=== PATIENT | female | born 1990 | race Asian ===

== ENCOUNTER → 2021-06-16 | Outpatient (REF) | LOC: M LAB 11:24 | PROVIDERS: ATTEND Nurse Practitioner Adult Health | DX: Z00.00 Encounter for general adult medical examination without abnormal findings (principal) ==

== ENCOUNTER → 2022-05-17 | Outpatient (REF) | LOC: M LABSMTC 11:26 | PROVIDERS: ATTEND Family Medicine | DX: Z11.52 Encounter for screening for COVID-19 (principal) ==

== ENCOUNTER 2023-08-21 01:24 | Outpatient (CLI) | payer OTHER ==
[~2023-08-21] VITALS: Ht 162.6 cm; Wt 84.1 kg
[2023-08-21 01:41] VITALS: BP 169/103
[2023-08-21 02:13] VITALS: BP 186/97
[2023-08-21] MEDS ORDERED: HOME MED LIST COMPLETE! XX SCH (02:20)
[2023-08-21 02:24] LABS: HEMATOCRIT 36.4 % (36.0-47.0); HEMOGLOBIN 12.1 g/dl (12.0-15.5); MEAN CORPUSCULAR HEMOGLOBIN 30.9 pg (27.0-33.0); MEAN CORPUSCULAR HGB CONC 33.2 g/dl (32.0-36.5); MEAN CORPUSCULAR VOLUME 93.1 fl (80.0-96.0); PLATELET COUNT, AUTOMATED 246 10^3/uL (150-450); RED BLOOD COUNT 3.91 10^6/uL (4.00-5.40); WHITE BLOOD COUNT 10.1 10^3/uL (4.0-10.0)
[2023-08-21] MEDS ORDERED: ONDANSETRON 4MG 2ML VIAL As Ordered ONE (02:27)
[2023-08-21] MEDS ORDERED: MORPHINE 4 MG/ML 1ML VIAL As Ordered ONE (02:27)
[2023-08-21] MEDS: ONDANSETRON 4MG 2ML VIAL IV ONE (02:30)
[2023-08-21 02:32] VITALS: O2SAT 100
[2023-08-21] MEDS: MORPHINE 4 MG/ML 1ML VIAL IV ONE (02:32)
[2023-08-21 02:43] LABS: LIPASE 47 U/L (12-53)
[2023-08-21 02:44] LABS: AMYLASE 95 U/L (30-118)
[2023-08-21 02:45] LABS: ALBUMIN 2.7 G/DL (3.2-5.2); ALKALINE PHOSPHATASE 113 U/L (46-116); ALT/SGPT 15 U/L (7.0-40); AST/SGOT 24 U/L (<34); BILIRUBIN,TOTAL 0.3 MG/DL (0.3-1.2); BLOOD UREA NITROGEN 9 MG/DL (9-23); CARBON DIOXIDE LEVEL 22 MMOL/L (20-31); CHLORIDE LEVEL 103 MMOL/L (98-107); CREATININE FOR GFR 0.55 MG/DL (0.55-1.30); GLOMERULAR FILTRATION RATE > 60.0 (>60); GLUCOSE, FASTING 103 MG/DL (60-100); POTASSIUM SERUM 3.9 MMOL/L (3.5-5.1); SODIUM LEVEL 136 MMOL/L (136-145); TOTAL PROTEIN 6.6 G/DL (5.7-8.2)
[2023-08-21 02:53] VITALS: BP 137/71
[2023-08-21 03:29] LABS: TOTAL PROTEIN,RANDOM URINE 22.3 MG/DL (0.0-14.0)
[2023-08-21 03:34] LABS: CREATININE,RANDOM URINE 144.9 MG/DL
[2023-08-21 05:52] VITALS: BP 128/65
== END 2023-08-21 06:55 | disposition home or self-care (01) ==
LOC: M LDO 01:24
PROVIDERS: ATTEND Obstetrics & Gynecology
DX: O26.893 Other specified pregnancy related conditions, third trimester (principal); R03.0 Elevated blood-pressure reading, without diagnosis of hypertension; O99.613 Diseases of the digestive system complicating pregnancy, third trimester; K80.20 Calculus of gallbladder without cholecystitis without obstruction; Z3A.34 34 weeks gestation of pregnancy
CPT/HCPCS: 59025; 76705; 80053; 82150; 82570; 83690; 84156; 85027; 96374; 96375; G0463; J2405

== ENCOUNTER 2023-09-24 08:40 | Inpatient (IN) | payer OTHER ==
[~2023-09-24] VITALS: Ht 162.6 cm; Wt 86.5 kg
[2023-09-24] VITALS (66 sets, daily range): BP systolic 115–194; BP diastolic 55–114
[2023-09-24] MEDS ORDERED: PRENTAB9 PO (09:02)
[2023-09-24] MEDS ORDERED: OXYTOCIN DRIP 30 UNITS in IV 1 EA IV PRN (09:50)
[2023-09-24] MEDS ORDERED: OXYTOCIN INJ 10UNITS/ML 1ML VIAL IV PRN (09:50)
[2023-09-24] MEDS ORDERED: LIDOCAINE 1% MDV 20ML VIAL INFIL PRN (09:50)
[2023-09-24] MEDS ORDERED: OXYTOCIN INJ 10UNITS/ML 1ML VIAL IM PRN (09:50)
[2023-09-24] MEDS ORDERED: TRANEXAMIC ACID INJection 1,000 MG in NS 100 ML IV PRN (09:50)
[2023-09-24] MEDS ORDERED: LR 1,000 ML IV SCH (09:50)
[2023-09-24 10:26] LABS: BASO # 0.1 10^3/uL (0.0-0.2); BASO % 0.5 % (0.0-1.0); EOS # 0.1 10^3/uL (0.0-0.5); EOS % 0.7 % (0.0-3.0); HEMATOCRIT 37.3 % (36.0-47.0); HEMOGLOBIN 12.2 g/dl (12.0-15.5); LYMPH # 1.6 10^3/uL (1.5-5.0); LYMPH % 17.1 % (24.0-44.0); MEAN CORPUSCULAR HEMOGLOBIN 30.2 pg (27.0-33.0); MEAN CORPUSCULAR HGB CONC 32.7 g/dl (32.0-36.5); MEAN CORPUSCULAR VOLUME 92.3 fl (80.0-96.0); MONO # 0.8 10^3/uL (0.0-0.8); MONO % 7.9 % (2.0-8.0); NEUTROPHILS # 6.9 10^3/uL (1.5-8.5); NEUTROPHILS % 73.3 % (36.0-66.0); PLATELET COUNT, AUTOMATED 199 10^3/uL (150-450); RED BLOOD COUNT 4.04 10^6/uL (4.00-5.40); WHITE BLOOD COUNT 9.4 10^3/uL (4.0-10.0)
[2023-09-24 10:53] LABS: TOTAL PROTEIN,RANDOM URINE 45.4 MG/DL (0.0-14.0); URIC ACID 6.7 MG/DL (3.1-7.8)
[2023-09-24 10:55] LABS: LDH LACTATE DEHYDROGENASE 221 U/L (120-246)
[2023-09-24 10:56] LABS: ALT/SGPT 15 U/L (7.0-40); AST/SGOT 18 U/L (<34); BILIRUBIN,TOTAL 0.3 MG/DL (0.3-1.2); CREATININE FOR GFR 0.67 MG/DL (0.55-1.30); GLOMERULAR FILTRATION RATE > 60.0 (>60)
[2023-09-24 10:58] LABS: CREATININE,RANDOM URINE 66.8 MG/DL
[2023-09-24] MEDS: OXYTOCIN DRIP 30 UNITS in IV 1 EA IV SCH (11:33)
[2023-09-24] MEDS: LACTATED RINGER'S 1000 ML IV STA (11:33)
[2023-09-24] MEDS ORDERED: HOME MED LIST COMPLETE! XX SCH (11:55)
[2023-09-24] MEDS ORDERED: ePHEDrine SULFATE 25 MG/5 ML(5MG/ML) SYRINGE IVP PRN (12:45)
[2023-09-24] MEDS ORDERED: EPIDURAL/PCA KEYS XX PRN (12:45)
[2023-09-24] MEDS ORDERED: NALOXONE INJ 0.4MG/1ML VIAL IV PRN (12:45)
[2023-09-24] MEDS ORDERED: LR 500 ML IV PRN (12:45)
[2023-09-24] MEDS ORDERED: diphenhydrAMINE 50MG/ML VIAL IV PRN (12:45)
[2023-09-24] MEDS: LR 1,000 ML IV SCH ×2 (13:15→18:40)
[2023-09-24] MEDS: FENTANYL/ROPIVACAINE/NACL BAG 100 ML EPIDURAL SCH (13:15)
[2023-09-24] MEDS: LABETALOL 100MG/20ML VIAL IV STA ×2 (17:44→18:45)
[2023-09-24] MEDS: ONDANSETRON 4MG 2ML VIAL IV PRN (17:51)
[2023-09-24] MEDS: ACETAMINOPHEN 500 MG TAB PO ONE (18:20)
[2023-09-24] MEDS: OXYTOCIN DRIP 30 UNITS in IV 1 EA IV PRN ×2 (18:40→18:53)
[2023-09-24] MEDS ORDERED: DIBUCAINE 1% OINTMENT 30GM TOP PRN (18:40)
[2023-09-24] MEDS ORDERED: MOM 30ML SUSPENSION UDC PO PRN (18:40)
[2023-09-24] MEDS: MAG Sulf (L&D) 4 GM/100 ML 4 GM in IV 1 EA IV ONE (18:53)
[2023-09-24] MEDS: MAG Sulf (OBGYN) 20GM/500ML 20,000 MG in IV 1 EA IV SCH (19:23)
[2023-09-24 19:44] LABS: ALT/SGPT 11 U/L (7.0-40); AST/SGOT 20 U/L (<34); BILIRUBIN,TOTAL 0.4 MG/DL (0.3-1.2); CREATININE FOR GFR 0.68 MG/DL (0.55-1.30); GLOMERULAR FILTRATION RATE > 60.0 (>60); LDH LACTATE DEHYDROGENASE 210 U/L (120-246)
[2023-09-24 19:45] LABS: URIC ACID 6.6 MG/DL (3.1-7.8)
[2023-09-24] MEDS ORDERED: AMPICILLIN SOD/SULBACTAM SOD 2 GM in D5W MINI-BAG PLUS 100 ML IV ONE (19:45)
[2023-09-24] MEDS ORDERED: GENTAMICIN 10 MG/ML 2ML VIAL*PRES.FREE IM ONE (19:45)
[2023-09-24] MEDS ORDERED: MATE ADAPTER IV SCH (20:40)
[2023-09-24] MEDS ORDERED: AMPICILLIN SOD IV SCH (20:40)
[2023-09-24] MEDS ORDERED: NS IV SCH (20:40)
[2023-09-24] MEDS: GENTAMICIN 400 MG in D5W 100 ML IV ONE (20:56)
[2023-09-24] MEDS ORDERED: AMPICILLIN 2GM VIAL IV ONE (21:00)
[2023-09-24] MEDS: MATE ADAPTER IV ONE (21:21)
[2023-09-24] MEDS: NS IV ONE (21:21)
[2023-09-24] MEDS: AMPICILLIN SOD IV ONE (21:21)
[2023-09-25] VITALS (27 sets, daily range): BP systolic 114–189; BP diastolic 58–92; O2SAT 96
[2023-09-25] MEDS: IBUPROFEN 800 MG TAB PO PRN (00:54)
[2023-09-25] MEDS: ACETAMINOPHEN 500 MG TAB PO PRN (01:25)
[2023-09-25 06:24] LABS: MEAN CORPUSCULAR HEMOGLOBIN 31.4 pg (27.0-33.0); MEAN CORPUSCULAR HGB CONC 33.9 g/dl (32.0-36.5); MEAN CORPUSCULAR VOLUME 92.4 fl (80.0-96.0); PLATELET COUNT, AUTOMATED 164 10^3/uL (150-450); RED BLOOD COUNT 3.03 10^6/uL (4.00-5.40); WHITE BLOOD COUNT 14.3 10^3/uL (4.0-10.0)
[2023-09-25 06:27] LABS: HEMOGLOBIN 9.5 g/dl (12.0-15.5)
[2023-09-25] MEDS: PRENATAL VITAMINS CHEWABLE TABLET PO SCH (08:28)
[2023-09-25] MEDS: DOCUSATE SODIUM 100MG CAPSULE PO PRN (11:36)
[2023-09-25] MEDS: hydrALAZINE 20MG/ML 1ML VIAL IV STA ×2 (17:53→18:20)
[2023-09-25] MEDS: LABETALOL 100MG/20ML VIAL IV STA (18:48)
[2023-09-25] MEDS: ALBUTEROL 90 MCG/ACT 8GM HFA INHALER INH PRN (21:49)
[2023-09-25] MEDS: LABETALOL 200 MG TAB PO SCH (22:07)
[2023-09-25] MEDS: MIRALAX *UNIT DOSE* 17GM PACKET PO PRN (22:59)
[2023-09-25] MEDS: ANUSOL HC CREAM 30GM TOP PRN (22:59)
[2023-09-26] VITALS (7 sets, daily range): BP systolic 122–170; BP diastolic 57–80; O2SAT 95–97
[2023-09-26] MEDS: MEASLES,MUMPS,RUBELLA VACCINE INJ (MMR-II) SC.IMMUN ONE (07:18)
[2023-09-27 02:00] VITALS: BP 122/60; O2SAT 98
[2023-09-27 06:00] VITALS: BP 139/64; O2SAT 99
[2023-09-27 11:00] VITALS: BP 131/68; O2SAT 97
[2023-09-27 13:56] VITALS: BP 132/72; O2SAT 99
[2023-09-27 18:00] VITALS: BP 139/74
[2023-09-27 21:35] VITALS: BP 135/69; O2SAT 96
[2023-09-28 05:55] VITALS: BP 145/81; O2SAT 97
[2023-09-28 05:57] VITALS: BP 145/81
== END 2023-09-28 12:15 | disposition home or self-care (01) | DRG 807 ==
LOC: M LDO 08:40 → M LDI 09:35 → M OBS 09-25 20:29
PROVIDERS: ADMIT Obstetrics & Gynecology; ATTEND Obstetrics & Gynecology
PROC: 10E0XZZ Delivery of Products of Conception, External Approach (ICD-10-PCS; principal; 2023-09-24)
PROC: 0KQM0ZZ Repair Perineum Muscle, Open Approach (ICD-10-PCS; 2023-09-24)
DX: O14.14 Severe pre-eclampsia complicating childbirth (principal); Z37.0 Single live birth; Z3A.39 39 weeks gestation of pregnancy; O69.81X0 Labor and delivery complicated by cord around neck, without compression, not applicable or unspecified; O70.1 Second degree perineal laceration during delivery; O99.02 Anemia complicating childbirth; D64.9 Anemia, unspecified

== ENCOUNTER → 2024-02-23 | Outpatient (REF) ==
[~2024-02-23] MED LIST: PRENTAB9 PO
== END ==
LOC: M EMP 09:23
PROVIDERS: ATTEND Family Medicine
DX: Z11.52 Encounter for screening for COVID-19 (principal)

== ENCOUNTER 2024-03-24 10:56 | Emergency (ER) | payer OTHER ==
[~2024-03-24] VITALS: Ht 162.6 cm; Wt 74.3 kg
[2024-03-24 10:57] VITALS: TEMP 97.5
[2024-03-24 11:44] LABS: BASO # 0.1 10^3/uL (0.0-0.2); BASO % 0.7 % (0.0-1.0); EOS # 0.3 10^3/uL (0.0-0.5); EOS % 2.8 % (0.0-3.0); HEMATOCRIT 41.4 % (36.0-47.0); HEMOGLOBIN 13.2 g/dl (12.0-15.5); LYMPH # 2.8 10^3/uL (1.5-5.0); LYMPH % 26.3 % (24.0-44.0); MEAN CORPUSCULAR HEMOGLOBIN 29.1 pg (27.0-33.0); MEAN CORPUSCULAR HGB CONC 31.9 g/dl (32.0-36.5); MEAN CORPUSCULAR VOLUME 91.4 fl (80.0-96.0); MONO % 8.9 % (2.0-8.0); NEUTROPHILS # 6.6 10^3/uL (1.5-8.5); PLATELET COUNT, AUTOMATED 331 10^3/uL (150-450); RED BLOOD COUNT 4.53 10^6/uL (4.00-5.40); WHITE BLOOD COUNT 10.8 10^3/uL (4.0-10.0)
[2024-03-24 12:07] LABS: LIPASE 39 U/L (12-53)
[2024-03-24 12:09] LABS: ALBUMIN 4.3 G/DL (3.2-5.2); ALKALINE PHOSPHATASE 70 U/L (46-116); ALT/SGPT 45 U/L (7.0-40); AST/SGOT 24 U/L (<34); BILIRUBIN,DIRECT 0.2 MG/DL (<0.4); BILIRUBIN,TOTAL 0.7 MG/DL (0.3-1.2); TOTAL PROTEIN 8.5 G/DL (5.7-8.2)
[2024-03-24 12:48] LABS: HCG, SERUM QUALITATIVE NEGATIVE (NEGATIVE)
[2024-03-24] MEDS ORDERED: AMOX875T2 PO (13:55)
[2024-03-24] MEDS ORDERED: KETO10TAB PO (13:55)
[2024-03-24 14:07] VITALS: BP 142/68; O2SAT 99
== END 2024-03-24 14:07 | disposition home or self-care (01) ==
LOC: M ED 10:56
DX: K80.00 Calculus of gallbladder with acute cholecystitis without obstruction (principal); Z79.2 Long term (current) use of antibiotics; Z79.810 Long term (current) use of selective estrogen receptor modulators (SERMs)

== ENCOUNTER → 2024-11-20 | Outpatient (CLI) | payer OTHER ==
[~2024-11-20] MED LIST changes: +AMOX875T2 PO; +KETO10TAB PO
[2024-11-20 16:34] LABS: BASO # 0.1 10^3/uL (0.0-0.2); BASO % 0.6 % (0.0-1.0); EOS # 0.1 10^3/uL (0.0-0.5); EOS % 1.8 % (0.0-3.0); HEMATOCRIT 43.5 % (36.0-47.0); HEMOGLOBIN 13.7 g/dl (12.0-15.5); LYMPH # 2.5 10^3/uL (1.5-5.0); LYMPH % 32.5 % (24.0-44.0); MEAN CORPUSCULAR HEMOGLOBIN 28.8 pg (27.0-33.0); MEAN CORPUSCULAR HGB CONC 31.5 g/dl (32.0-36.5); MEAN CORPUSCULAR VOLUME 91.6 fl (80.0-96.0); MONO # 0.5 10^3/uL (0.0-0.8); MONO % 6.9 % (2.0-8.0); NEUTROPHILS # 4.5 10^3/uL (1.5-8.5); NEUTROPHILS % 57.9 % (36.0-66.0); PLATELET COUNT, AUTOMATED 335 10^3/uL (150-450); RED BLOOD COUNT 4.75 10^6/uL (4.00-5.40); WHITE BLOOD COUNT 7.8 10^3/uL (4.0-10.0)
[2024-11-20 16:57] LABS: HEMOGLOBIN A1c 5.8 % (4.0-6.0)
[2024-11-20 17:05] LABS: ALBUMIN 4.3 G/DL (3.2-5.2); ALKALINE PHOSPHATASE 49 U/L (35-104); ALT/SGPT 32 U/L (7.0-40); AST/SGOT 16 U/L (<34); BILIRUBIN,TOTAL 0.4 MG/DL (0.3-1.2); BLOOD UREA NITROGEN 16 MG/DL (9-23); CALCIUM LEVEL 9.8 MG/DL (8.5-10.1); CARBON DIOXIDE LEVEL 28 MMOL/L (20-31); CHLORIDE LEVEL 101 MMOL/L (98-107); CHOLESTEROL LEVEL 179 MG/DL (<200); CHOLESTEROL RISK RATIO 3.97 (<5); CREATININE FOR GFR 0.65 MG/DL (0.55-1.30); GLOMERULAR FILTRATION RATE > 90.0 (>60); GLUCOSE, FASTING 95 MG/DL (60-100); LDL CHOLESTEROL 112.8 MG/DL (<100); POTASSIUM SERUM 4.1 MMOL/L (3.5-5.1); SODIUM LEVEL 140 MMOL/L (136-145); TOTAL PROTEIN 8.1 G/DL (5.7-8.2); TRIGLYCERIDES LEVEL 106 MG/DL (<150)
== END ==
LOC: M LAB 15:21
PROVIDERS: ATTEND Internal Medicine Cardiovascular Disease
DX: I34.1 Nonrheumatic mitral (valve) prolapse (principal)